=== PATIENT | female | born 1955 | race Caucasian/White ===

== ENCOUNTER 2020-03-05 09:34 | Observation (INO) | payer MEDICARE, BC ==
[~2020-03-05] VITALS: Ht 172.7 cm; Wt 94.0 kg
--- NOTE | 2020-03-05 09:34 | NUR ---
PT ASSISTED TO ROOM 15 VIA W/C
[2020-03-05] MEDS ORDERED: OMEPRAZOLE DR40 MG PO (10:10)
[2020-03-05] MEDS ORDERED: TRAZODONE50 MG PO (10:11)
[2020-03-05] MEDS ORDERED: ZOLPIDEM ER12.5 MG PO (10:12)
[2020-03-05] MEDS ORDERED: CYCLOBENZAPRINE10 MG PO (10:13)
[2020-03-05] MEDS ORDERED: EZALLOR SPRINKL10 MG PO (10:14)
[2020-03-05] MEDS ORDERED: LOSARTAN POTASS50 MG PO (10:15)
[2020-03-05] MEDS ORDERED: MONTELUKAST SOD10 MG PO (10:15)
[2020-03-05] MEDS ORDERED: GABAPENTIN100 MG PO ×2 (10:16)
[2020-03-05] MEDS ORDERED: TIZANIDINE HCL4 M1 PO (10:17)
--- NOTE | 2020-03-05 10:19 | NUR ---
PT STATES HAVING INCREASE CHEST PAIN OF 6/10 ALONG WITH A "ELECTRICAL SHOCK" THAT RUNS ALL THROUGH HER BODY. PT IS TEARFUL AND HYPERVENTILATING. STATES FELLING BOTH LEGS WEAK. NIH 0. DENIES ANY OTHER S/S. SLIGHTLY INTERM NAUSEA W/O VOMITING. WILL CONTINUE TO MONITOR.
[2020-03-05 10:21] LABS: HEMATOCRIT 46.8 % (37.0-47.0); HEMOGLOBIN 16.3 g/dl (12.0-16.0); IMMATURE GRANULOCYTES 1.1 % (0.0-5.0); MEAN CELL VOLUME 92.5 fL CALC (80.0-100.0); MEAN CORPUSCULAR HGB 32.2 pG CALC (26.0-32.0); MEAN CORPUSCULAR HGB CONC 34.8 g/dL CAL (32.0-36.0); NEUT# 6.18 thou/uL (2.00-7.15); RED BLOOD COUNT 5.06 mill/uL (4.20-5.60); RED CELL DISTRI WIDTH 12.3 % (11.5-15.5)
[2020-03-05 10:44] LABS: ALBUMIN 4.5 g/dL (3.2-5.0); ALKALINE PHOSPHATASE 120 u/l (38-126); ANION GAP 13 (6-22 (CALC)); BILIRUBIN, TOTAL 0.6 mg/dL (0.0-1.4); BUN 22 mg/dL (8-23); BUN/CREATININE RATIO 30 (12-20 (CALC)); CARBON DIOXIDE 26 mmol/l (22-30); CHLORIDE 103 mmol/l (95-108); CREATININE 0.8 mg/dL (0.5-1.0); GFR > 60 ML/MIN (>=60 (CALC)); GFR FOR AFR.AMER. > 60 ML/MIN (>=60 (CALC)); POTASSIUM 4.4 mmol/l (3.5-5.1); SGOT/AST 21 u/l (9-36); SODIUM 137 mmol/l (137-146)
--- NOTE | 2020-03-05 11:11 | NUR ---
PT DISCUSSING PLAN OF CARE WITH MD WHO IS AT BEDSIDE. PT DENIES ANY NEEDS AT THIS TIME. UPON REASSESSMENT SHE STATES THAT CHEST PAIN IS AT 2/10 AND APPEARS TO BE MORE CALM. SHE IS NO LONGER CRYING, SHAKING NOR HYPERVENTILATING. CALL LIGHT WITHIN REACH
--- NOTE | 2020-03-05 12:20 | NUR ---
PT CONTINUES TO BE COMFORTABLE. DENIES ANY NEEDS. UPDATED ON PENDING ADMISSION
--- NOTE | 2020-03-05 13:30 | NUR ---
PT AWAITING PENDING ADMISSION. DENIES ANY NEEDS AT THIS TIME. WAS RECONNECTED TO MONITORING EQUIP AFTER USING TH BR
--- NOTE | 2020-03-05 14:20 | NUR ---
REPORT GIVEN TO LOIDA
--- NOTE | 2020-03-05 14:40 | NUR ---
PT TRANSPORTED TO [facility] SURG STABLE AND IN NO DISTRESS. CARE ASSUMED TO LOIDA Admission Note Report Given to: LOIDA Transported by: Wheelchair X Stretcher Transported with: X Nurse Transporter X Patent IV O2 X Proofer Black And White Location: ICU X MS2
--- NOTE | 2020-03-05 15:07 | NUR ---
PT ARRIVED VIA STRETCHER WITH STAFF.
--- NOTE | 2020-03-05 15:40 | NUR ---
ASSESSMENT IS COMPLETED;IV SITE IS FREE FROM, REDNESS OR EDEMA/ HR IS REG,PULSES ARE STRONG X4, ABD IS SOFT WITH ACTIV EBS. BREATH SOUNDS ARE CELAR,BILATERALLY. TELE MONITOR IN PLACE. PT C/O IV SITE TENDER DUE TO TAPE ON TIGHT. INFORMED OF THE REASON IT HAS TO STAY ON. VERBALIZED UNDERSTANDING.
--- NOTE | 2020-03-05 15:49 | NUR ---
SPOKEW ITH PT RE: TIZANIDINE UNABLE TO HAVE SOMEONE BRING IN
[2020-03-05 16:00] VITALS: BP 154/82
[2020-03-05 19:00] VITALS: BP 135/86
--- NOTE | 2020-03-05 19:44 | NUR ---
PT RESTING IN BED, NO SIGNS OF DISTRESS NOTED, RESP EVEN AND UNLABORED. DISCUSSED POC, PT VOICES NO NEEDS OR COMPLAINTS. A+Ox3, DENIES CP AT THIS TIME. ASSESSMENT COMPLETED, CALL LIGHT IN REACH,CONTINUE TO MONITOR.
--- NOTE | 2020-03-05 21:48 | NUR ---
RECEIVED CALL FROM ED PT HR DROPPED TO 45 BUT DID NOT SUSTAIN PER ED BANKING ATTORNEY. ENTERED ROOM PT WAS SLEEPING EASILY AROUSED TO VERBAL STIMULI, PT DENIES CP NITRO PASTE REMOVED, AND 2200 DOSE NOT GIVEN. PT REQUESTING SLEEPING PILL,, PT MEDICATED PER JUN. CALL LIGHT IN REACH,CONTINUE TO MONITOR.
--- NOTE | 2020-03-05 22:33 | NUR ---
PT C/O HEADACHE FROM NITRO, MEDICATED WITH TYLENOL. CALL LIGHT IN REACH,CONTINUE TO MONITOR.
[2020-03-06] VITALS: BP 152/85
--- NOTE | 2020-03-06 00:27 | NUR ---
PT RESTING IN BED, NO SIGNS OF DISTRESS NOTED, RESP EVEN AND UNLABORED. PT STATES SHE STILL HAS A HEADACHE, OFFERED COOL COMPRESS, PT DECLINED, CALL LIGHT IN REACH,CONTINUE TO MONITOR.
[2020-03-06 04:00] VITALS: BP 164/80
--- NOTE | 2020-03-06 04:09 | NUR ---
PT C/O HEADACHE, BP ELEVATED. PT DECLINED NITRO PASTE DUE TO HEADACHE. PT MEDICATED WITH 9AM [place] FOR BP. CALL LIGHT IN REACH,CONTINUE TO MONITOR. CALL LIGHT IN REACH,CONTINUE TO MONITOR.
[2020-03-06 05:34] LABS: HEMATOCRIT 46.7 % (37.0-47.0); HEMOGLOBIN 15.7 g/dl (12.0-16.0); IMMATURE GRANULOCYTES 1.1 % (0.0-5.0); MEAN CELL VOLUME 95.3 fL CALC (80.0-100.0); MEAN CORPUSCULAR HGB CONC 33.6 g/dL CAL (32.0-36.0); NEUT# 4.62 thou/uL (2.00-7.15); RED BLOOD COUNT 4.9 mill/uL (4.20-5.60); RED CELL DISTRI WIDTH 12.5 % (11.5-15.5)
[2020-03-06 05:47] LABS: ALBUMIN 3.9 g/dL (3.2-5.0); ALKALINE PHOSPHATASE 89 u/l (38-126); ANION GAP 10 (6-22 (CALC)); BILIRUBIN, TOTAL 0.6 mg/dL (0.0-1.4); BUN 19 mg/dL (8-23); BUN/CREATININE RATIO 26 (12-20 (CALC)); CALCULATED LDLCHOLESTEROL 49 mg/dL (62-129 (CALC)); CARBON DIOXIDE 26 mmol/l (22-30); CHLORIDE 107 mmol/l (95-108); CHOLESTEROL HDL RATIO 1.7 (<4.4 (CALC)); CREATININE 0.7 mg/dL (0.5-1.0); GFR > 60 ML/MIN (>=60 (CALC)); GFR FOR AFR.AMER. > 60 ML/MIN (>=60 (CALC)); HDL CHOLESTEROL 109 mg/dL (>=40); MAGNESIUM 2.2 mg/dL (1.6-2.3); POTASSIUM 4.4 mmol/l (3.5-5.1); SGOT/AST 19 u/l (9-36); SODIUM 138 mmol/l (137-146); TOTAL CHOLESTEROL 187 mg/dl (0-199); TOTAL PROTEIN 6.1 g/dL (6.3-8.2); TOTAL TRIGLYCERIDES 146 mg/dl (30-149); VLDL CHOLESTROL 29 mg/dl (1-41 (CALC))
[2020-03-06 05:51] VITALS: BP 151/74
[2020-03-06 07:33] VITALS: BP 126/78
--- NOTE | 2020-03-06 07:33 | NUR ---
RECIEVED REPORT FROM BRITTANIE ALVAREZ. PT RESTING IN SEMI FOWLERS POSITION UPON ENTERING ROOM. INTRODUCED SELF TO PT AND DISCUSSED POC. PT IS A/O X3 AND ABLE TO VOICE NEEDS. ASSESSMENT AND VITALS COMPLETED. BP 126/78, HR 80, O2 96% ON ROOM AIR. RESPIRATIONS ARE EVEN AND UNLABORED. HEART RHYTHM IS NORMAL WITH TELE IN PLACE, SR PER ER MONITORING. BOWEL SOUNDS ARE ACTIVE IN ALL QUADRANTS, LAST REPORTED BM 03/05/2020. RADIAL AND PEDAL PULSES ARE STRONG. #20G IN RAC FLUSHED, SITE APPEARS HEALTHY AND PATENT. PT COMPLAINS OF 10/10 HEAD ACHE. MATTRESS AND BOXSPRINGS SUPERVISOR INFORMED PT THAT TYLENOL WAS NOT AVAILABLE AT THIS TIME. PT VERBALIZED UNDERSTANDING. ICE PACK PROVIDED. PT DENIES ANY NEEDS AT THIS TIME. ALL SAFETY PRECAUTIONS ARE IN PLACE WITH CALL LIGHT IN RECH. WILL CONTINUE TO MONITOR
[2020-03-06 08:39] VITALS: BP 126/78
--- NOTE | 2020-03-06 08:42 | NUR ---
DR GARDNER AT BEDSIDE DISCUSSING POC WITH PT
--- NOTE | 2020-03-06 10:08 | NUR ---
PT EDUCATED ON DISCHARGE INSTRUCTIONS. PT VERBALIZED UNDERSTANDING. IV REMOVED WITH CATHATER STILL INTACT. TELE MONITORING REMOVED. ER NOTIFIED. AWAITING FOR TRANSPORTATION UPON DISCHARGED. WILL CONTINUE TO MONITOR
--- NOTE | 2020-03-06 10:10 | NUR ---
Discharge instructions given. Patient verbalizes understanding of same. Discharged in stable condition via Ambulatory to Home with *Other. All belongings sent with pt. PT DISCHARGED VIA STEADY GAIT IN STABLE CONDITION WITH ALL DISCHARGE INSTRUCTIONS AND BELONGINGS. PT REFUSED WHEELCHAIR.
== END 2020-03-06 10:09 | disposition home or self-care (01) ==
LOC: ED 09:34 → ED-I 12:00 → ED 12:13 → MS2 12:14
PROVIDERS: Family Medicine; Nurse Practitioner; ADMIT Internal Medicine; ATTEND Internal Medicine
DX: R07.9 Chest pain, unspecified (principal); I10 Essential (primary) hypertension; F32.9 Major depressive disorder, single episode, unspecified; F41.9 Anxiety disorder, unspecified; K21.9 Gastro-esophageal reflux disease without esophagitis; E78.5 Hyperlipidemia, unspecified; Z98.84 Bariatric surgery status; Z20.828 Contact with and (suspected) exposure to other viral communicable diseases
CPT/HCPCS: J1650